=== PATIENT | male | born 1950 | race Caucasian/White ===

== ENCOUNTER → 2016-09-23 | Outpatient (CLI) | payer OTHER ==
[~2016-09-23] MED LIST: ASPI81TA85 PO; FISH1000 PO; GLUC1CAP9 PO; LISI20TA3 PO; MULTTAB PO; TYLE650T25 PO; [UNRECOGNIZED DRUG - CODE] PO; [UNRECOGNIZED DRUG - OTHER] PO; tamulosin PO
[2016-09-23 14:59] LABS: CREATININE FOR GFR 1.36 MG/DL (0.70-1.30); GLOMERULAR FILTRATION RATE 56.2 (>49)
== END ==
LOC: M LAB 14:17
PROVIDERS: ATTEND Podiatrist
DX: D49.2 Neoplasm of unspecified behavior of bone, soft tissue, and skin (principal)

== ENCOUNTER → 2016-11-27 | Outpatient (CLI) | payer MEDICARE, OTHER ==
--- NOTE | 2016-11-27 12:27 | REP ---
Chest two views HISTORY: Melanoma Comparison: 09/09/2015 The lungs are clear. The heart is normal in size. The pulmonary vasculature is normal in appearance. There is an old healed fracture of the right clavicle. Surgical clips are present in the right axilla. IMPRESSION: No acute disease.
--- NOTE | 2016-11-27 12:47 | REP ---
RIGHT SHOULDER, THREE VIEWS: HISTORY: Pain. There is no acute fracture or dislocation. There is narrowing of the acromioclavicular joint with associated osteophyte formation. Calcification is present lateral to the head of the humerus. This represents ligamentous or tendon calcification. Surgical clips are present in the right axilla. IMPRESSION: Degenerative change as described above.
== END ==
LOC: M CLY 11:38
PROVIDERS: ATTEND Family Medicine
DX: M19.011 Primary osteoarthritis, right shoulder (principal); Z85.820 Personal history of malignant melanoma of skin; Z08 Encounter for follow-up examination after completed treatment for malignant neoplasm

== ENCOUNTER → 2016-11-27 | Outpatient (REF) | payer MEDICARE, OTHER ==
[2016-11-27 20:03] LABS: MEAN CORPUSCULAR HEMOGLOBIN 33.3 pg (27.0-33.0); MEAN CORPUSCULAR HGB CONC 33.9 g/dl (32.0-36.5); RED CELL DISTRIBUTION WIDTH 12.5 % (11.5-14.5); WHITE BLOOD COUNT 7.7 K/mm3 (4.0-10.0)
[2016-11-27 20:11] LABS: ALBUMIN 4.3 GM/DL (3.2-5.2); ALBUMIN/GLOBULIN RATIO 1.48 (1.00-1.93); BILIRUBIN,TOTAL 0.5 MG/DL (0.2-1.0); CALCIUM LEVEL 8.9 MG/DL (8.8-10.2); CREATININE FOR GFR 1.6 MG/DL (0.70-1.30); GLOMERULAR FILTRATION RATE 46.4 (>49); POTASSIUM SERUM 3.8 MEQ/L (3.5-5.1); TOTAL PROTEIN 7.2 GM/DL (6.4-8.2)
== END ==
LOC: M SFHCCLAY 11:01
PROVIDERS: ATTEND Family Medicine
DX: Z00.00 Encounter for general adult medical examination without abnormal findings (principal); N52.9 Male erectile dysfunction, unspecified; I10 Essential (primary) hypertension; Z12.5 Encounter for screening for malignant neoplasm of prostate
CPT/HCPCS: 80053; 80061; 84443; 85027; G0103

== ENCOUNTER → 2016-12-11 | Outpatient (CLI) | payer MEDICARE, OTHER ==
--- NOTE | 2016-12-11 11:32 | REP ---
ABDOMINAL AORTIC SONOGRAPHY: HISTORY: Tobacco use. FINDINGS: Retroperitoneal scanning demonstrates a normal caliber aorta at the diaphragmatic hiatus measuring 2.2 cm in AP dimension x 2.1 cm transverse. No aortic aneurysm is seen. The mid aortic dimensions are 2.1 x 2.4 cm. The distal aorta measures 1.8 x 2.5 cm in AP x transverse dimension respectively. There are mild atherosclerotic irregularities in the wall of the aorta. The right and left common iliac arteries are normal in caliber as well, measuring 1.3 and 1.1 cm in AP dimension respectively. IMPRESSION: No evidence of aortic aneurysm. Signed by Mark Stallworth MD 12/11/2016 01:54 P
== END ==
LOC: M RAD 09:03
PROVIDERS: ATTEND Family Medicine
DX: Z87.891 Personal history of nicotine dependence (principal); Z09 Encounter for follow-up examination after completed treatment for conditions other than malignant neoplasm

== ENCOUNTER → 2017-01-05 | Outpatient (CLI) | payer MEDICARE ==
--- NOTE | 2017-01-06 07:36 | REP ---
Clinical: Lung screening. History smoking. Technique: Axial noncontrast low-dose images from the thoracic inlet to the upper abdomen using lung screening technique. Comparison: None. Findings: Mild chronic age-related interstitial changes and bibasilar/lingular chronic fibroatelectatic changes are noted. A 3 mm noncalcified nodule in the periphery of the right middle lobe (image 46) and left lower lobe (image 50) are identified. No further significant nodule or mass lesion appreciated. No pleural effusion or pneumothorax. Impression: Lung-RADS category IIS. Presumed chronic fibro atelectatic changes primarily involving the lingula and to a lesser extent the bilateral lower lobes along with 3 mm noncalcified nodule in the right middle lobe and left lower lobe. 6-month low-dose CT reevaluation may be warranted. Signed by Adair Orta MD 01/06/2017 07:28 A
== END ==
LOC: M RAD 12:54
PROVIDERS: ATTEND Family Medicine
DX: F17.210 Nicotine dependence, cigarettes, uncomplicated (principal)

== ENCOUNTER → 2017-01-06 | Outpatient (REF) | payer OTHER ==
[2017-01-06 18:22] LABS: CALCIUM LEVEL 8.7 MG/DL (8.8-10.2); CREATININE FOR GFR 1.34 MG/DL (0.70-1.30); POTASSIUM SERUM 3.7 MEQ/L (3.5-5.1)
== END ==
LOC: M SFHCCLAY 09:55
PROVIDERS: ATTEND Family Medicine
DX: I10 Essential (primary) hypertension (principal)

== ENCOUNTER → 2017-03-22 | Outpatient (REF) | payer MEDICARE, MEDICAID ==
[2017-03-22 11:43] LABS: MEAN CORPUSCULAR HEMOGLOBIN 34.5 pg (27.0-33.0); MEAN CORPUSCULAR HGB CONC 34.9 g/dl (32.0-36.5); MEAN CORPUSCULAR VOLUME 99.1 fl (80.0-96.0); WHITE BLOOD COUNT 7.7 K/mm3 (4.0-10.0)
[2017-03-22 12:02] LABS: CALCIUM LEVEL 9.3 MG/DL (8.8-10.2); CREATININE FOR GFR 1.29 MG/DL (0.70-1.30); GLOMERULAR FILTRATION RATE 59.5 (>49); POTASSIUM SERUM 3.4 MEQ/L (3.5-5.1)
== END ==
LOC: M SFHCCLAY 08:51
PROVIDERS: ATTEND Family Medicine
DX: I10 Essential (primary) hypertension (principal); K44.9 Diaphragmatic hernia without obstruction or gangrene

== ENCOUNTER → 2017-03-30 | Outpatient (REF) | payer MEDICAID, MEDICARE ==
[2017-03-30 19:39] LABS: ANION GAP 7 MEQ/L (8-16); BLOOD UREA NITROGEN 15 MG/DL (7-18); CALCIUM LEVEL 9.4 MG/DL (8.8-10.2); CARBON DIOXIDE LEVEL 27 MEQ/L (21-32); CHLORIDE LEVEL 107 MEQ/L (98-107); CREATININE FOR GFR 1.23 MG/DL (0.70-1.30); GLOMERULAR FILTRATION RATE > 60.0 (>49); GLUCOSE, FASTING 86 MG/DL (80-110); POTASSIUM SERUM 3.8 MEQ/L (3.5-5.1); SODIUM LEVEL 141 MEQ/L (136-145)
== END ==
LOC: M SFHCCLAY 11:04
PROVIDERS: ATTEND Family Medicine
DX: Z01.818 Encounter for other preprocedural examination (principal); G89.29 Other chronic pain; I10 Essential (primary) hypertension

== ENCOUNTER → 2017-05-04 | Outpatient (CLI) | payer MEDICARE ==
--- NOTE | 2017-05-04 11:10 | REP ---
CT of the chest without IV contrast: Comparison is the low-dose lung screening CT dated 01/05/2017. There is a curvilinear density in the lingular segment of the left upper lobe, unchanged, compatible with discoid atelectasis versus parenchymal scar. There is a curvilinear density in the right lower lobe, unchanged, compatible with discoid atelectasis versus parenchymal scar. There is a curvilinear density posteriorly inferiorly in the right upper lobe , unchanged, compatible with discoid atelectasis versus parenchymal scar. There is a 3 mm noncalcified lung nodule posteriorly in the lateral segment of the right middle lobe on image 45, unchanged. There is a 3 mm calcified granuloma posterior laterally in the left lower lobe on image 50, unchanged. There are no other nodules or masses. There are no acute infiltrates or effusions. There is no mediastinal adenopathy. There are a few normal-sized nodes. There is no axillary adenopathy. There are a few normal-size nodes. In the absence of IV contrast the study is insensitive for hilar adenopathy. Thoracic aorta is well. Cardiac size is normal. In the upper abdomen. There are surgical clips in the gallbladder fossa. There is no adrenal mass. The visualized portions of the unenhanced liver, pancreas and spleen are unremarkable. Impression: There is a 3 mm noncalcified nodule in the right middle lobe, unchanged. There is a 3 mm calcified granuloma in the left lower lobe, unchanged. There are curvilinear densities in the lingula, right lower lobe and right upper lobe, unchanged, compatible with discoid atelectasis versus parenchymal scars. Signed by Ej Hess MD 05/04/2017 11:02 A
== END ==
LOC: M RAD 10:22
PROVIDERS: ATTEND Internal Medicine Pulmonary Disease
DX: R91.8 Other nonspecific abnormal finding of lung field (principal)

== ENCOUNTER → 2017-09-01 | Outpatient (REF) | payer MEDICARE | LOC: M SFHCCLAY 12:01 | PROVIDERS: ATTEND Family Medicine | DX: R21 Rash and other nonspecific skin eruption (principal); M19.90 Unspecified osteoarthritis, unspecified site; Z11.59 Encounter for screening for other viral diseases ==

== ENCOUNTER → 2017-09-08 | Outpatient (REF) | payer MEDICARE | LOC: M SMT 17:29 | PROVIDERS: ATTEND Nurse Practitioner Women's Health | DX: N40.1 Benign prostatic hyperplasia with lower urinary tract symptoms (principal) ==

== ENCOUNTER → 2017-10-08 | Outpatient (CLI) | payer MEDICARE, BC | LOC: M SMT 09:23 | DX: N40.1 Benign prostatic hyperplasia with lower urinary tract symptoms (principal) | CPT/HCPCS: 76857 ==

== ENCOUNTER → 2017-10-26 | Outpatient (REF) | payer BC | LOC: M LABSMT 08:52 | DX: N39.0 Urinary tract infection, site not specified (principal) | CPT/HCPCS: 87086 ==

== ENCOUNTER → 2017-11-02 | Outpatient (CLI) | payer MEDICARE | LOC: M RAD 10:55 | DX: R91.1 Solitary pulmonary nodule (principal) | CPT/HCPCS: 71250 ==

== ENCOUNTER → 2017-11-11 | Outpatient (REF) | payer MEDICARE | LOC: M SMT 13:06 | DX: R30.0 Dysuria (principal) | CPT/HCPCS: 87086 ==

== ENCOUNTER → 2018-04-26 | Outpatient (REF) | payer MEDICARE | LOC: M SFHCCLAY 10:38 | DX: I10 Essential (primary) hypertension (principal); K44.9 Diaphragmatic hernia without obstruction or gangrene; G47.33 Obstructive sleep apnea (adult) (pediatric); Z53.8 Procedure and treatment not carried out for other reasons ==

== ENCOUNTER → 2018-08-09 | Outpatient (REF) | payer MEDICARE ==
[2018-08-09 12:20] LABS: HEMATOCRIT 40.7 % (42.0-52.0); HEMOGLOBIN 13.9 g/dl (13.5-17.5); MEAN CORPUSCULAR HEMOGLOBIN 32.6 pg (27.0-33.0); MEAN CORPUSCULAR HGB CONC 34.2 g/dl (32.0-36.5); MEAN CORPUSCULAR VOLUME 95.5 fl (80.0-96.0); PLATELET COUNT, AUTOMATED 196 10^3/uL (150-450); RED BLOOD COUNT 4.26 10^6/uL (4.30-6.10); RED CELL DISTRIBUTION WIDTH 12.5 % (11.5-14.5); WHITE BLOOD COUNT 7.9 10^3/uL (4.0-10.0)
[2018-08-09 12:23] LABS: ALBUMIN 3.6 GM/DL (3.2-5.2); ALBUMIN/GLOBULIN RATIO 1.24 (1.00-1.93); ALKALINE PHOSPHATASE 94 U/L (45-117); ALT/SGPT 56 U/L (12-78); ANION GAP 7 MEQ/L (8-16); AST/SGOT 28 U/L (7-37); BILIRUBIN,TOTAL 0.6 MG/DL (0.2-1.0); BLOOD UREA NITROGEN 12 MG/DL (7-18); CALCIUM LEVEL 8.6 MG/DL (8.8-10.2); CARBON DIOXIDE LEVEL 29 MEQ/L (21-32); CHLORIDE LEVEL 105 MEQ/L (98-107); CHOLESTEROL LEVEL 149 MG/DL (<200); CHOLESTEROL RISK RATIO 4.138 (<5); CREATININE FOR GFR 1.14 MG/DL (0.70-1.30); GLOMERULAR FILTRATION RATE > 60.0 (>49); GLUCOSE, FASTING 110 MG/DL (70-100); HDL CHOLESTEROL 36 MG/DL (>40); LDL CHOLESTEROL 71 MG/DL (<100); NON-HDL-C 113 MG/DL; POTASSIUM SERUM 3.7 MEQ/L (3.5-5.1); SODIUM LEVEL 141 MEQ/L (136-145); TOTAL PROTEIN 6.5 GM/DL (6.4-8.2); TRIGLYCERIDES LEVEL 212 MG/DL (<150)
== END ==
LOC: M SFHCCLAY 07:44
DX: K44.9 Diaphragmatic hernia without obstruction or gangrene (principal); I10 Essential (primary) hypertension; G47.33 Obstructive sleep apnea (adult) (pediatric)
CPT/HCPCS: 80053

== ENCOUNTER → 2018-11-15 | Outpatient (CLI) | payer MEDICARE ==
--- NOTE | 2018-11-15 15:30 | REP ---
Clinical: Follow up solitary pulmonary nodule. Technique: Axial noncontrast images from the thoracic inlet to the upper abdomen with coronal and sagittal re-formations. Comparison: 11/02/2017. Findings: Lung alvarez are well-aerated, symmetric and essentially clear. Minimal linear scarring at the lingula noted. Stable 3 mm noncalcified nodule along the periphery of the right middle lobe unchanged. No acute consolidation, significant nodule, or mass lesion. Small calcified granulomas identified. No pleural effusion. No pneumothorax. Tracheobronchial tree is patent. No obvious adenopathy. Mediastinum demonstrates relatively normal thoracic aorta, pulmonary vasculature, heart and pericardium. No cardiomegaly or pericardial effusion. Surrounding musculoskeletal structures without focal osseous abnormality. Limited upper abdomen demonstrates evidence for prior cholecystectomy, 3 mm nonobstructing left intrarenal calculus, and essentially normal bilateral adrenal glands. Impression: Minimal linear scarring at the lingula. Stable 3 mm noncalcified right middle lobe nodule. 3 mm nonobstructing left nephrolith. Electronically Signed by Adair Orta MD 11/15/2018 03:22 P
== END ==
LOC: M RAD 15:01
PROVIDERS: ATTEND Internal Medicine Pulmonary Disease
DX: R91.1 Solitary pulmonary nodule (principal); N20.0 Calculus of kidney

== ENCOUNTER → 2019-02-03 | Outpatient (REF) | payer MEDICARE ==
[2019-02-03 18:45] LABS: HEMOGLOBIN A1c 6.2 %
== END ==
LOC: M SFHCCLAY 11:36
PROVIDERS: ATTEND Family Medicine
DX: R73.02 Impaired glucose tolerance (oral) (principal)

== ENCOUNTER → 2019-08-09 | Outpatient (REF) | payer MEDICARE ==
[~2019-08-09] MED LIST changes: +LISI20TA20 PO; -LISI20TA3 PO
[2019-08-09 16:44] LABS: HEMATOCRIT 44.2 % (42.0-52.0); MEAN CORPUSCULAR HEMOGLOBIN 33.5 pg (27.0-33.0); MEAN CORPUSCULAR HGB CONC 33.9 g/dl (32.0-36.5); MEAN CORPUSCULAR VOLUME 98.7 fl (80.0-96.0); PLATELET COUNT, AUTOMATED 189 10^3/uL (150-450); RED BLOOD COUNT 4.48 10^6/uL (4.30-6.10)
[2019-08-09 16:59] LABS: ALBUMIN 3.9 GM/DL (3.2-5.2); BILIRUBIN,TOTAL 0.8 MG/DL (0.2-1.0); CALCIUM LEVEL 9.2 MG/DL (8.8-10.2); CHOLESTEROL RISK RATIO 2.944 (<5); CREATININE FOR GFR 1.3 MG/DL (0.70-1.30); FREE T4 1.01 NG/DL (0.76-1.46); GLOMERULAR FILTRATION RATE 58.6 (>49); POTASSIUM SERUM 3.7 MEQ/L (3.5-5.1); THYROID STIMULATING HORMONE 2.31 uIU/ML (0.358-3.740); TOTAL PROTEIN 7.3 GM/DL (6.4-8.2)
== END ==
LOC: M SFHCCLAY 10:30
PROVIDERS: ATTEND Family Medicine
DX: I10 Essential (primary) hypertension (principal); G47.33 Obstructive sleep apnea (adult) (pediatric); K44.9 Diaphragmatic hernia without obstruction or gangrene

== ENCOUNTER → 2019-11-24 | Outpatient (REF) | payer MEDICARE ==
[2019-11-24 16:19] LABS: HEMATOCRIT 45.6 % (42.0-52.0); HEMOGLOBIN 15.5 g/dl (13.5-17.5); PLATELET COUNT, AUTOMATED 191 10^3/uL (150-450)
[2019-11-24 16:35] LABS: ALBUMIN 4.2 GM/DL (3.2-5.2); BILIRUBIN,TOTAL 0.8 MG/DL (0.2-1.0); CALCIUM LEVEL 9.1 MG/DL (8.8-10.2); CREATININE FOR GFR 1.37 MG/DL (0.70-1.30); FREE T4 0.95 NG/DL (0.76-1.46); POTASSIUM SERUM 3.6 MEQ/L (3.5-5.1); THYROID STIMULATING HORMONE 3.18 uIU/ML (0.358-3.740); TOTAL PROTEIN 7.4 GM/DL (6.4-8.2)
[2019-11-24 16:48] LABS: ERYTHROCYTE SEDIMENTATION RATE 6 mm/hr (0-20)
== END ==
LOC: M SFHCCLAY 10:35
PROVIDERS: ATTEND Family Medicine
DX: M54.41 Lumbago with sciatica, right side (principal); R63.4 Abnormal weight loss; I10 Essential (primary) hypertension; Z12.5 Encounter for screening for malignant neoplasm of prostate; Z79.899 Other long term (current) drug therapy
CPT/HCPCS: 80053; 83036; 84165; 84439; 84443; 85027; 85652; G0103

== ENCOUNTER → 2019-11-30 | Outpatient (CLI) | payer MEDICARE ==
--- NOTE | 2019-11-30 13:33 | REP ---
Lumbar spine series: Five views. History: Lumbago with sciatica. Findings: Five views of the lumbar spine show mild wedging of the anterior edge of the T12 vertebral body. This is unchanged from a comparison study of August 06, 2012. There are degenerative disc changes throughout the lumbar spine which are somewhat more prominent than on that prior study. There is an area of discogenic sclerosis along the superior endplate of the L4 vertebral body. There are clips in right upper quadrant and right mid abdomen. Osteoarthritic facet hypertrophy is noted bilaterally. There are old post-traumatic changes in the transverse processes on the left at L3 and L2. These are unchanged. Sacrum and SI joints are intact. Psoas margins are symmetric. Impression: Degenerative spondylosis changes as above. Old post-traumatic deformity of the left lateral transverse processes at L2 and L3 unchanged. Old wedge compression deformity at T12 unchanged. Electronically Signed by Mark Stallworth MD 11/30/2019 01:35 P
--- NOTE | 2019-11-30 13:36 | REP ---
Duplex carotid sonography: History: Nicotine dependency history. No comparison study. Findings: Antegrade flow was observed in both vertebral arteries. Right carotid: The right common carotid artery is unremarkable on two-dimensional scanning. There is mild calcific plaquing in the right carotid bulb and proximal ICA. Color flow and spectral Doppler interrogation is unremarkable on the right. Velocity chart right carotid: PSV EDV Right CCA 90.0 cm/s Right ICA 46.0 20.0 Right ECA 88.0 Right ICA/CCA ratio normal 0.5. Impression: Less than 50% category narrowing in the right ICA by Doppler velocity criteria. Left carotid: The left common carotid artery is unremarkable. There is minimal calcific plaquing on the left. Color flow and spectral Doppler interrogation are unremarkable on the left. Velocity chart left carotid: PSV EDV Left CCA 81.0 cm/s Left ICA 62.0 33.0 Left ECA 65.0 Left ICA/CCA ratio normal 0.8. Impression: Less than 50% category narrowing in the left ICA by Doppler velocity criteria. Electronically Signed by Mark Stallworth MD 11/30/2019 02:31 P
== END ==
LOC: M RAD 11:33
PROVIDERS: ATTEND Family Medicine
DX: I25.10 Atherosclerotic heart disease of native coronary artery without angina pectoris (principal); M54.41 Lumbago with sciatica, right side; F17.210 Nicotine dependence, cigarettes, uncomplicated; I10 Essential (primary) hypertension; H34.01 Transient retinal artery occlusion, right eye

== ENCOUNTER → 2020-01-01 | Outpatient (CLI) | payer MEDICARE ==
--- NOTE | 2020-01-01 10:30 | REP ---
CT CHEST WITHOUT CONTRAST: CT chest performed without IV contrast. Sagittal and coronal reconstruction images are performed. Comparison is made with a prior study of 11/15/2018 and 11/02/2017. Small calcified granulomas are seen bilaterally, right greater than left. There is linear fibrotic scarring in the lingula. There is also scattered linear scarring in the right lung. The previously noted 3 mm nodular density in the right middle lobe appears to represent linear scarring on the coronal reconstruction images. Posterior left upper lobe scarring is stable. No new nodule is seen. There is no axillary or mediastinal adenopathy. There is mild atherosclerotic calcification of the thoracic aorta without aneurysm. The heart is normal in size. There is no pleural or pericardial effusion. Patient has had a prior cholecystectomy. There are degenerative changes of the spine. Stable compression deformities are noted of the lower thoracic spine. IMPRESSION: Calcified granulomas are seen bilaterally as well as scattered linear fibrotic scarring. No suspicious nodular opacity. Electronically Signed by Ej Mora MD 01/01/2020 12:55 P
== END ==
LOC: M RAD 08:44
PROVIDERS: ATTEND Internal Medicine Pulmonary Disease
DX: R91.1 Solitary pulmonary nodule (principal)

== ENCOUNTER → 2020-01-02 | Outpatient (REF) | payer MEDICARE ==
[2020-01-02 11:31] LABS: CALCIUM LEVEL 8.6 MG/DL (8.8-10.2); CREATININE FOR GFR 1.33 MG/DL (0.70-1.30); GLOMERULAR FILTRATION RATE 56.9 (>49); POTASSIUM SERUM 3.7 MEQ/L (3.5-5.1)
== END ==
LOC: M SFHCCLAY 07:38
PROVIDERS: ATTEND Family Medicine
DX: I10 Essential (primary) hypertension (principal)

== ENCOUNTER → 2020-05-06 | Outpatient (CLI) | payer MEDICARE ==
[~2020-05-06] MED LIST changes: -ASPI81TA85 PO; +ASPI81TA86 PO
== END ==
LOC: M RAD 13:30
PROVIDERS: ATTEND Orthopaedic Surgery
DX: M47.892 Other spondylosis, cervical region (principal); M25.78 Osteophyte, vertebrae; M50.23 Other cervical disc displacement, cervicothoracic region

== ENCOUNTER → 2020-06-19 | Outpatient (CLI) | payer MEDICARE | LOC: M LABSMTC 09:50 | PROVIDERS: ATTEND Orthopaedic Surgery | DX: Z01.812 Encounter for preprocedural laboratory examination (principal); Z20.828 Contact with and (suspected) exposure to other viral communicable diseases ==

== ENCOUNTER → 2020-06-20 | Outpatient (CLI) | payer MEDICARE | LOC: M LABSMTC 10:39 | PROVIDERS: ATTEND Orthopaedic Surgery | DX: Z01.812 Encounter for preprocedural laboratory examination (principal); Z20.828 Contact with and (suspected) exposure to other viral communicable diseases ==

== ENCOUNTER → 2021-01-06 | Outpatient (CLI) | payer MEDICARE ==
--- NOTE | 2021-01-06 09:43 | REP ---
INDICATION: SOLITARY PULMONARY NODULE COMPARISON: Multiple prior examinations dating between 01/01/2020 and 01/05/2017 TECHNIQUE: Axial noncontrast images from the thoracic inlet to the upper abdomen with coronal and sagittal reformations. This CT examination was performed using the following dose reduction techniques: Automated exposure control, adjustment of mA and/or kv according to the patient's size, and use of iterative reconstruction technique. FINDINGS: Lung alvarez demonstrate stable small calcified and noncalcified nodules unchanged from prior examination along with minimally progressive scattered linear fibroatelectatic changes primarily in the right lower lobe and lingula. No acute consolidation, significant nodule or mass lesion. No pleural effusion. No pneumothorax. Tracheobronchial tree is patent. Mediastinum demonstrates mild stable atherosclerotic changes to the thoracic aorta and coronary arteries without aortic aneurysm or cardiomegaly. No pericardial effusion. No significant hilar or mediastinal adenopathy is appreciated. Few mildly prominent lymph nodes in the left axilla are nonspecific but appear increased as compared with 01/01/2020. Skeletal structures demonstrate scattered nonspecific heterogeneous changes along with small bone island in the right 8th rib. IMPRESSION: 1. Stable small noncalcified and calcified nodules. No new acute suspicious consolidation, nodule or mass. 2. Mildly progressive chronic changes suggested primarily at the right base and lingula. 3. Left axillary lymph nodes are nonspecific but appear increased compared with 2019 <Electronically signed by Adair Orta > 01/06/21 0953
== END ==
LOC: M RAD 09:07
PROVIDERS: ATTEND Internal Medicine Pulmonary Disease
DX: R91.1 Solitary pulmonary nodule (principal)

== ENCOUNTER → 2021-01-31 | Outpatient (REF) | payer MEDICARE ==
[~2021-01-31] MED LIST changes: +HYDR-3490 PO; +POTA10CA32 PO
[2021-01-31 11:43] LABS: HEMATOCRIT 44.4 % (42.0-52.0); HEMOGLOBIN 14.8 g/dl (13.5-17.5); MEAN CORPUSCULAR HEMOGLOBIN 33.3 pg (27.0-33.0); MEAN CORPUSCULAR HGB CONC 33.3 g/dl (32.0-36.5); MEAN CORPUSCULAR VOLUME 99.8 fl (80.0-96.0); PLATELET COUNT, AUTOMATED 189 10^3/uL (150-450); RED BLOOD COUNT 4.45 10^6/uL (4.30-6.10); WHITE BLOOD COUNT 7.8 10^3/uL (4.0-10.0)
[2021-01-31 12:55] LABS: ALBUMIN 3.8 GM/DL (3.2-5.2); ALT/SGPT 25 U/L (12-78); BILIRUBIN,TOTAL 0.7 MG/DL (0.2-1.0); BLOOD UREA NITROGEN 16 MG/DL (7-18); CARBON DIOXIDE LEVEL 29 MEQ/L (21-32); CHLORIDE LEVEL 107 MEQ/L (98-107); CHOLESTEROL LEVEL 160 MG/DL (<200); CHOLESTEROL RISK RATIO 2.909 (<5); CREATININE FOR GFR 1.12 MG/DL (0.70-1.30); GLOMERULAR FILTRATION RATE > 60.0 (>49); GLUCOSE, FASTING 89 MG/DL (70-100); HDL CHOLESTEROL 55 MG/DL (>40); LDL CHOLESTEROL 89 MG/DL (<100); NON-HDL-C 105 MG/DL; POTASSIUM SERUM 3.9 MEQ/L (3.5-5.1); SODIUM LEVEL 142 MEQ/L (136-145); TOTAL PROTEIN 6.6 GM/DL (6.4-8.2); TRIGLYCERIDES LEVEL 80 MG/DL (<150)
== END ==
LOC: M SFHCCLAY 09:40
PROVIDERS: ATTEND Family Medicine
DX: K44.9 Diaphragmatic hernia without obstruction or gangrene (principal); I10 Essential (primary) hypertension

== ENCOUNTER → 2021-02-01 | Outpatient (CLI) | payer MEDICARE | LOC: M LABSMTC 07:56 | PROVIDERS: ATTEND Anesthesiology | DX: Z11.52 Encounter for screening for COVID-19 (principal) ==

== ENCOUNTER 2021-02-06 08:27 | Day surgery (SDC) | payer MEDICARE ==
[~2021-02-06] VITALS: Ht 167.6 cm; Wt 104.8 kg
[~2021-02-06 08:27] MED LIST changes: +NS 1,000 ML IV ONE
[2021-02-06] MEDS ORDERED: propofoL 200 MG/20 ML VIAL As Ordered ONE (09:38)
[2021-02-06] MEDS ORDERED: LIDOCAINE 2% 100MG/5ML SDV (FOR ANES.) As Ordered ONE (09:38)
--- NOTE | 2021-02-06 10:10 | ROOR ---
Patient Name: Efra Ocampo Procedure Date: 02/06/2021 9:45 AM Date of : 1950 Age: 70 Room: [facility] Gender: Male Note Status: Finalized Procedure: Colonoscopy Indications: High risk colon cancer surveillance: Personal history of colonic polyps Providers: Hieu Kaplan Jr, MD Referring MD: Kalyan Gallardo MD Requesting Provider: Medicines: Propofol per Anesthesia Complications: No immediate complications. Procedure: Pre-Anesthesia Assessment: - Prior to the procedure, a History and Physical was performed, and patient medications and allergies were reviewed. The patient is competent. The risks and benefits of the procedure and the sedation options and risks were discussed with the patient. All questions were answered and informed consent was obtained. Patient identification and proposed procedure were verified by the physician and the nurse in the pre-procedure area and in the procedure room. Mental Status Examination: alert and oriented. Airway Examination: normal oropharyngeal airway and neck mobility. Respiratory Examination: clear to auscultation. CV Examination: normal. ASA Grade Assessment: II - A patient with mild systemic disease. After reviewing the risks and benefits, the patient was deemed in satisfactory condition to undergo the procedure. The anesthesia plan was to use moderate sedation / analgesia (conscious sedation). Immediately prior to administration of medications, the patient was re-assessed for adequacy to receive sedatives. The heart rate, respiratory rate, oxygen saturations, blood pressure, adequacy of pulmonary ventilation, and response to care were monitored throughout the procedure. The physical status of the patient was re-assessed after the procedure. The Colonoscope was introduced through the anus and advanced to the cecum, identified by appendiceal orifice and ileocecal valve. The colonoscopy was performed without difficulty. The patient tolerated the procedure well. The quality of the bowel preparation was adequate. Findings: A small polyp was found in the ascending colon. The polyp was removed with a hot snare. Resection and retrieval were complete. The rectum, recto-sigmoid colon, descending colon, transverse colon, cecum, appendiceal orifice and ileocecal valve appeared normal. Multiple small and large-mouthed diverticula were found in the sigmoid colon. Impression: - One small polyp in the ascending colon, removed with a hot snare. Resected and retrieved. - The rectum, recto-sigmoid colon, descending colon, transverse colon, cecum, appendiceal orifice and ileocecal valve are normal. - Diverticulosis in the sigmoid colon. Recommendation: - Discharge patient to home (ambulatory). - Repeat colonoscopy in 5 years for surveillance. - Telephone my office for pathology results in 1 week. Procedure Code(s): --- Professional --- 05041, Colonoscopy, flexible; with removal of tumor(s), polyp(s), or other lesion(s) by snare technique Diagnosis Code(s): --- Professional --- Z86.010, Personal history of colonic polyps K63.5, Polyp of colon K57.30, Diverticulosis of large intestine without perforation or abscess without bleeding CPT copyright 2019 [employer]. All rights reserved. The codes documented in this report are preliminary and upon animal care giver review may be revised to meet current compliance requirements. Hieu Kaplan MD Hieu Kaplan Jr, MD 02/06/2021 10:10:05 AM Electronically signed by Hieu Kaplan Jr, MD Number of Addenda: 0 Note Initiated On: 02/06/2021 9:45 AM Estimated Blood Loss: Estimated blood loss: none.
[2021-02-06 10:31] VITALS: BP 118/88
== END 2021-02-06 10:35 | disposition home or self-care (01) ==
LOC: M OPP 08:27
PROVIDERS: ATTEND Surgery
DX: Z12.11 Encounter for screening for malignant neoplasm of colon (principal); Z86.010 Personal history of colon polyps; D12.6 Benign neoplasm of colon, unspecified; K57.30 Diverticulosis of large intestine without perforation or abscess without bleeding; Z79.82 Long term (current) use of aspirin; Z79.899 Other long term (current) drug therapy; Z87.891 Personal history of nicotine dependence

== ENCOUNTER → 2021-06-20 | Outpatient (CLI) | payer MEDICARE ==
[~2021-06-20] MED LIST changes: -NS 1,000 ML IV ONE
--- NOTE | 2021-06-20 10:57 | REP ---
INDICATION: RT KNEE PAIN. COMPARISON: None. TECHNIQUE: Standing bilateral AP view of the knees with lateral and sunrise view of the right knee FINDINGS: There is been total left knee arthroplasty. The appearance of the arthroplasty is unremarkable. Three views of the right knee shows advanced medial compartmental narrowing with mild tricompartmental marginal osteophytosis and affecting the medial compartment to the greatest degree. There is medial compartmental subchondral sclerosis. 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 The margins are somewhat irregular, however. 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 If the patient has been involved in trauma then I suppose the finding could represent acute change upon chronic change. This needs to be correlated clinically. If necessary obtain an MRI. Other findings as described above. <Electronically signed by Camilo Humphrey > 06/20/21 1056
== END ==
LOC: M SOG 08:20
PROVIDERS: ATTEND Orthopaedic Surgery Adult Reconstructive Orthopaedic Surgery
DX: M25.561 Pain in right knee (principal)

== ENCOUNTER → 2021-07-28 | Outpatient (CLI) | payer MEDICARE, BC ==
[~2021-07-28] MED LIST changes: +CIDA500T2 PO; +D32000TA PO; +GNP625TA PO; +HEAL1TAB2 PO; +KP F1200 PO; +MULT-6 PO
--- NOTE | 2021-07-28 09:46 | REP ---
INDICATION: RT KNEE OSTEOARTHIRITIS. COMPARISON: X-ray 06/20/2021 TECHNIQUE: Ray protocol. FINDINGS: Right knee. Mild narrowing of the medial compartment on this nonweightbearing CT marginal osteophytes medial greater than lateral joint line and small spurs tibial spines. There is some sclerosis of the medial tibial plateau with subchondral cyst peripherally. Bone island in the medial femoral condyle. A bipartite patella is noted. Small suprapatellar effusion is noted. There is narrowing of the patellofemoral joint laterally and a few mm of lateral subluxation. Right hip shows some osteoarthritic change with rim osteophyte acetabular roof but without AVN or fracture. No abnormal soft tissue calcification about the joint. No effusion. Intertrochanteric and subtrochanteric femur grossly unremarkable. The visualized pubic rami are unremarkable there is some cystic changes in the acetabulum both articular and non articular. Right ankle shows talar dome tilt laterally with asymmetric widening of the lateral aspect of the mortise joint and narrowing medially some subchondral sclerosis and subchondral cyst at the medial talar dome and the also small cysts at the inferior aspect of the medial malleolus. There is an old avulsion off the distal tip of the medial malleolus. Minor degenerative changes the inferior aspect of the fibula. Subtalar joints show some degenerative changes at the posterior margin of the posterior subtalar joint with plantar and tiny Achilles insertion spurs on the posterior calcaneus. Talonavicular and calcaneocuboid joint joints are normal. AP and lateral rubber roller grinder operator films from below the iliac crests to the feet for surgical planning are provided. IMPRESSION: 1. Tricompartment arthritis of the knee as described. There also degenerative changes of the ankle and hip. These images and rubber roller grinder operator of the lower extremities provided for surgical planning. <Electronically signed by Zacarias James > 07/28/21 [id number]
== END ==
LOC: M RAD 08:40
PROVIDERS: ATTEND Orthopaedic Surgery Adult Reconstructive Orthopaedic Surgery
DX: M17.11 Unilateral primary osteoarthritis, right knee (principal)

== ENCOUNTER 2021-07-31 11:45 | Outpatient (RCR) | payer MEDICARE, BC ==
[~2021-07-31 11:45] MED LIST changes: -ASPI-551 PO; -COLA100C5 PO; -LISI20TA20 PO; +LISI20TA37 PO; -NAPR-849 PO; -OXYC-517 PO
[2021-08-13] MEDS ORDERED: OXYC-517 PO (08:48)
[2021-08-13] MEDS ORDERED: COLA100C5 PO (08:50)
[2021-08-13] MEDS ORDERED: NAPR-849 PO (08:50)
[2021-08-13] MEDS ORDERED: ASPI-551 PO (15:35)
== END 2021-08-19 ==
LOC: M PT 11:45
PROVIDERS: ATTEND Orthopaedic Surgery Adult Reconstructive Orthopaedic Surgery
DX: M17.11 Unilateral primary osteoarthritis, right knee (principal)

== ENCOUNTER → 2021-07-31 | Outpatient (REF) | payer MEDICARE, BC ==
[~2021-07-31] MED LIST changes: +ASPI-551 PO; +COLA100C5 PO; +NAPR-849 PO; +OXYC-517 PO
[2021-07-31 16:46] LABS: BASO # 0.1 10^3/uL (0.0-0.2); BASO % 0.6 % (0.0-1.0); EOS # 0.2 10^3/uL (0.0-0.5); EOS % 1.9 % (0.0-3.0); HEMATOCRIT 43.9 % (42.0-52.0); HEMOGLOBIN 15.1 g/dl (13.5-17.5); LYMPH # 2.5 10^3/uL (1.5-5.0); LYMPH % 30.6 % (24.0-44.0); MEAN CORPUSCULAR HEMOGLOBIN 33.2 pg (27.0-33.0); MEAN CORPUSCULAR HGB CONC 34.4 g/dl (32.0-36.5); MEAN CORPUSCULAR VOLUME 96.5 fl (80.0-96.0); MONO # 1.4 10^3/uL (0.0-0.8); NEUTROPHILS % 49.2 % (36.0-66.0); PLATELET COUNT, AUTOMATED 198 10^3/uL (150-450); RED BLOOD COUNT 4.55 10^6/uL (4.30-6.10); WHITE BLOOD COUNT 8.1 10^3/uL (4.0-10.0)
[2021-07-31 17:08] LABS: BILIRUBIN,TOTAL 0.6 MG/DL (0.2-1.0); CALCIUM LEVEL 9.6 MG/DL (8.8-10.2); CREATININE FOR GFR 1.34 MG/DL (0.70-1.30); GLOMERULAR FILTRATION RATE 56.3 (>49); POTASSIUM SERUM 3.8 MEQ/L (3.5-5.1); TOTAL PROTEIN 6.7 GM/DL (6.4-8.2)
== END ==
LOC: M SFHCCLAY 09:30
PROVIDERS: ATTEND Family Medicine
DX: I10 Essential (primary) hypertension (principal)
CPT/HCPCS: 80053; 85025; 93005; G0463

== ENCOUNTER → 2021-08-08 | Outpatient (CLI) | payer MEDICARE, BC ==
[~2021-08-08] MED LIST changes: +ASPI-551 PO; +COLA100C5 PO; +LISI20TA20 PO; -LISI20TA37 PO; +NAPR-849 PO; +OXYC-517 PO
== END ==
LOC: M LABSMTC 10:46
PROVIDERS: ATTEND Anesthesiology
DX: Z01.812 Encounter for preprocedural laboratory examination (principal); Z20.822 Contact with and (suspected) exposure to COVID-19

== ENCOUNTER 2021-08-12 08:35 | Observation (INO) | payer MEDICARE, BC ==
[~2021-08-12] VITALS: Ht 170.2 cm; Wt 102.9 kg
[~2021-08-12 08:35] MED LIST changes: +ACETAMINOPHEN 500 MG TAB PO ONE; -ASPI-551 PO; -COLA100C5 PO; +LIDOCAINE 1% MDV 20ML VIAL SQ PRN; +LIDOCAINE 2% 100MG/5ML SDV (FOR ANES.) As Ordered ONE; -LISI20TA20 PO; +LISI20TA37 PO; +LR 1,000 ML IV ONE; +MIDAZOLAM INJ 2MG/2ML VIAL (J2250 PER 1MG) As Ordered ONE; -NAPR-849 PO; +NAPROXEN 250 MG TAB PO ONE; +NS 1,000 ML IV ONE; -OXYC-517 PO; +PREGABALIN 25 MG CAP (LYRICA) PO ONE; +ROPIVA 125MG/EPINEPH 0.25MG/CLONID 40MCG/KETOR 15MG IN NS 50ML SYRINGE PA ONE; +TRANEXAMIC ACID INJection 1,000 MG in NS 50 ML IV ONE; +ceFAZolin SOD 2 GM in IV 1 EA IV ONE; +dexameTHASONE 4 MG/ML 1ML VIAL (J1100 PER 1MG) IV ONE; +fentaNYL 100 MCG/2 ML INJECTION As Ordered ONE; +propofoL 200 MG/20 ML VIAL As Ordered ONE; +propofoL 500 MG/50 ML VIAL As Ordered ONE
[2021-08-12] MEDS ORDERED: TRANEXAMIC ACID 100 MG/ML 10ML VIAL As Ordered ONE (10:22)
[2021-08-12] MEDS ORDERED: propofoL 500 MG/50 ML VIAL As Ordered ONE (11:51)
[2021-08-12] MEDS ORDERED: ePHEDrine SULFATE 25 MG/5 ML(5MG/ML) SYRINGE As Ordered ONE (12:34)
[2021-08-12] MEDS ORDERED: LR 1,000 ML IV SCH ×2 (13:35→13:40)
[2021-08-12] MEDS ORDERED: PERCOCET 5MG/325MG TAB PO PRN (13:35)
[2021-08-12] MEDS ORDERED: ONDANSETRON 4MG/2ML VIAL IV PRN ×2 (13:35→13:40)
[2021-08-12] MEDS ORDERED: fentaNYL 100 MCG/2 ML INJECTION IV PRN (13:35)
[2021-08-12] MEDS ORDERED: METOCLOPRAMIDE INJ 10MG/2ML VIAL (J2765 PER 1) IV PRN (13:35)
[2021-08-12] MEDS ORDERED: oxyCODONE 5MG TAB PO PRN ×2 (13:40)
[2021-08-12] MEDS ORDERED: traMADol 50 MG TAB PO PRN (13:40)
[2021-08-12] MEDS ORDERED: SENNA 8.6 MG TAB (SENOKOT) PO PRN (13:40)
[2021-08-12 14:26] VITALS: BP 110/66
[2021-08-12] MEDS: ACETAMINOPHEN TAB 650MG DOSE (2X325MG) PO SCH ×2 (14:35→18:28)
[2021-08-12 15:05] VITALS: BP 116/72
[2021-08-12 16:19] VITALS: BP 117/73
[2021-08-12 17:08] VITALS: BP 143/86
[2021-08-12] MEDS: ceFAZolin SOD 2 GM in IV 1 EA IV SCH (18:27)
[2021-08-12 18:53] VITALS: BP 109/69
[2021-08-12] MEDS: POTASSIUM CHLORIDE 10MEQ SR TABLET PO SCH (20:28)
[2021-08-12] MEDS: ASPIRIN 81MG ENTERIC TABLET PO SCH (20:28)
[2021-08-12] MEDS: DOCUSATE SODIUM 100MG CAPSULE PO SCH (20:28)
[2021-08-12] MEDS: NAPROXEN 250 MG TAB PO SCH (20:28)
[2021-08-12 21:00] VITALS: BP 110/58; O2SAT 94
[2021-08-13 02:00] VITALS: BP 114/74
[2021-08-13] MEDS: ceFAZolin SOD 2 GM in IV 1 EA IV SCH (02:25)
[2021-08-13] MEDS: ACETAMINOPHEN TAB 650MG DOSE (2X325MG) PO SCH ×3 (05:30→13:00)
[2021-08-13 05:59] VITALS: BP 122/72
[2021-08-13 06:16] LABS: HEMATOCRIT 36.1 % (42.0-52.0); HEMOGLOBIN 12.5 g/dl (13.5-17.5); MEAN CORPUSCULAR HEMOGLOBIN 33.1 pg (27.0-33.0); MEAN CORPUSCULAR HGB CONC 34.6 g/dl (32.0-36.5); MEAN CORPUSCULAR VOLUME 95.5 fl (80.0-96.0); PLATELET COUNT, AUTOMATED 153 10^3/uL (150-450); RED BLOOD COUNT 3.78 10^6/uL (4.30-6.10); WHITE BLOOD COUNT 12.9 10^3/uL (4.0-10.0)
[2021-08-13 06:45] LABS: BLOOD UREA NITROGEN 20 MG/DL (7-18); CALCIUM LEVEL 8.3 MG/DL (8.8-10.2); CARBON DIOXIDE LEVEL 24 MEQ/L (21-32); CHLORIDE LEVEL 112 MEQ/L (98-107); CREATININE FOR GFR 1.16 MG/DL (0.70-1.30); GLOMERULAR FILTRATION RATE > 60.0 (>49); GLUCOSE, FASTING 118 MG/DL (70-100); MAGNESIUM LEVEL 2.2 MG/DL (1.8-2.4); POTASSIUM SERUM 4.2 MEQ/L (3.5-5.1); SODIUM LEVEL 143 MEQ/L (136-145)
[2021-08-13] MEDS ORDERED: OXYC-517 PO (08:48)
[2021-08-13] MEDS: NAPROXEN 250 MG TAB PO SCH (08:49)
[2021-08-13] MEDS: ASPIRIN 81MG ENTERIC TABLET PO SCH (08:49)
[2021-08-13] MEDS: DOCUSATE SODIUM 100MG CAPSULE PO SCH (08:49)
[2021-08-13] MEDS: POTASSIUM CHLORIDE 10MEQ SR TABLET PO SCH (08:49)
[2021-08-13] MEDS ORDERED: COLA100C5 PO (08:50)
[2021-08-13] MEDS ORDERED: NAPR-849 PO (08:50)
[2021-08-13] MEDS ORDERED: ASCORBIC ACID 500 MG TAB PO SCH (09:00)
[2021-08-13] MEDS ORDERED: FERROUS SULFATE 325MG TAB PO SCH (09:00)
[2021-08-13 10:00] VITALS: BP 117/73
[2021-08-13 14:00] VITALS: BP 140/77
[2021-08-13] MEDS ORDERED: ASPI-551 PO (15:35)
== END 2021-08-13 16:45 | disposition home health service (06) ==
LOC: M SDC 08:35 → M MS5PR 08:36
PROVIDERS: ADMIT Family Medicine; ATTEND Orthopaedic Surgery Adult Reconstructive Orthopaedic Surgery
DX: M17.11 Unilateral primary osteoarthritis, right knee (principal); I10 Essential (primary) hypertension; G47.33 Obstructive sleep apnea (adult) (pediatric); Z87.891 Personal history of nicotine dependence; Z79.82 Long term (current) use of aspirin; Z86.73 Personal history of transient ischemic attack (TIA), and cerebral infarction without residual deficits; Z79.899 Other long term (current) drug therapy
CPT/HCPCS: 27447; 36415; 73560; 80048; 83735; 85027; 88304; 88311; 96365; 96366; 97161; 97530; C1776; G0378; J0690; J1100; J2250; J3010

== ENCOUNTER → 2021-08-15 | Outpatient (REF) | payer MEDICARE, BC ==
[~2021-08-15] MED LIST changes: -ACETAMINOPHEN 500 MG TAB PO ONE; +ASPI-551 PO; +COLA100C5 PO; -LIDOCAINE 1% MDV 20ML VIAL SQ PRN; -LIDOCAINE 2% 100MG/5ML SDV (FOR ANES.) As Ordered ONE; -LR 1,000 ML IV ONE; -MIDAZOLAM INJ 2MG/2ML VIAL (J2250 PER 1MG) As Ordered ONE; +NAPR-849 PO; -NAPROXEN 250 MG TAB PO ONE; -NS 1,000 ML IV ONE; +OXYC-517 PO; -PREGABALIN 25 MG CAP (LYRICA) PO ONE; -ROPIVA 125MG/EPINEPH 0.25MG/CLONID 40MCG/KETOR 15MG IN NS 50ML SYRINGE PA ONE; -TRANEXAMIC ACID INJection 1,000 MG in NS 50 ML IV ONE; -ceFAZolin SOD 2 GM in IV 1 EA IV ONE; -dexameTHASONE 4 MG/ML 1ML VIAL (J1100 PER 1MG) IV ONE; -fentaNYL 100 MCG/2 ML INJECTION As Ordered ONE; -propofoL 200 MG/20 ML VIAL As Ordered ONE; -propofoL 500 MG/50 ML VIAL As Ordered ONE
[2021-08-15 11:28] LABS: BASO # 0.1 10^3/uL (0.0-0.2); BASO % 0.5 % (0.0-1.0); EOS # 0.1 10^3/uL (0.0-0.5); EOS % 1.3 % (0.0-3.0); HEMATOCRIT 39.1 % (42.0-52.0); HEMOGLOBIN 13.3 g/dl (13.5-17.5); LYMPH # 2.6 10^3/uL (1.5-5.0); LYMPH % 23.6 % (24.0-44.0); MEAN CORPUSCULAR HEMOGLOBIN 32.6 pg (27.0-33.0); MEAN CORPUSCULAR VOLUME 95.8 fl (80.0-96.0); MONO % 18.2 % (2.0-8.0); NEUTROPHILS % 55.8 % (36.0-66.0); PLATELET COUNT, AUTOMATED 188 10^3/uL (150-450); RED BLOOD COUNT 4.08 10^6/uL (4.30-6.10); WHITE BLOOD COUNT 10.8 10^3/uL (4.0-10.0)
[2021-08-15 12:16] LABS: CALCIUM LEVEL 8.8 MG/DL (8.8-10.2); CREATININE FOR GFR 1.35 MG/DL (0.70-1.30); GLOMERULAR FILTRATION RATE 55.8 (>49); POTASSIUM SERUM 3.7 MEQ/L (3.5-5.1)
== END ==
LOC: M SHH 10:58
PROVIDERS: ATTEND Orthopaedic Surgery Adult Reconstructive Orthopaedic Surgery
DX: M17.11 Unilateral primary osteoarthritis, right knee (principal)

== ENCOUNTER → 2021-08-27 | Outpatient (CLI) | payer MEDICARE, BC ==
[~2021-08-27] MED LIST changes: +LISI20TA20 PO; -LISI20TA37 PO
--- NOTE | 2021-08-28 08:47 | REP ---
INDICATION: RT TKA FOLLOW UP. COMPARISON: 08/12/2021 TECHNIQUE: AP, lateral, sunrise views of the right knee. FINDINGS: Patient is again noted to be status post right knee replacement with normal appearance and positioning to the tibial, femoral, and patellar components. No evidence for loosening. Overlying postsurgical changes have significantly improved. No subcutaneous emphysema. No abnormal foreign body. IMPRESSION: Decreased postsurgical changes. <Electronically signed by Adair Orta > 08/28/21 0883
== END ==
LOC: M SOG 08:53
PROVIDERS: ATTEND Orthopaedic Surgery Adult Reconstructive Orthopaedic Surgery
DX: Z96.651 Presence of right artificial knee joint (principal)

== ENCOUNTER → 2021-12-24 | Outpatient (REF) | payer MEDICARE ==
[~2021-12-24] MED LIST changes: -LISI20TA20 PO; +LISI20TA37 PO
[2021-12-24 12:00] LABS: ALBUMIN 3.7 GM/DL (3.2-5.2); CREATININE FOR GFR 1.28 MG/DL (0.70-1.30); GLOMERULAR FILTRATION RATE 59.1 (>42); PHOSPHORUS LEVEL 3.1 MG/DL (2.5-4.9); POTASSIUM SERUM 3.6 MEQ/L (3.5-5.1)
== END ==
LOC: M SFHCCLAY 07:50
PROVIDERS: ATTEND Family Medicine
DX: I10 Essential (primary) hypertension (principal)

== ENCOUNTER → 2022-01-27 | Outpatient (CLI) | payer MEDICARE | LOC: M RAD 10:39 | PROVIDERS: ATTEND Internal Medicine Pulmonary Disease | DX: Z87.891 Personal history of nicotine dependence (principal) ==

== ENCOUNTER → 2022-04-21 | Outpatient (CLI) | payer MEDICARE | LOC: M CLY 09:05 | PROVIDERS: ATTEND Family Medicine | DX: R07.81 Pleurodynia (principal) ==

== ENCOUNTER → 2022-07-29 | Outpatient (CLI) | payer MEDICARE | LOC: M SOG 08:26 | PROVIDERS: ATTEND Orthopaedic Surgery Adult Reconstructive Orthopaedic Surgery | DX: Z96.653 Presence of artificial knee joint, bilateral (principal) ==

== ENCOUNTER → 2022-10-22 | Outpatient (REF) | payer MEDICARE ==
[~2022-10-22] MED LIST changes: -POTA10CA32 PO; +POTA10CA33 PO
[2022-10-22 17:33] LABS: HEMATOCRIT 44.5 % (42.0-52.0); HEMOGLOBIN 15.1 g/dl (13.5-17.5); MEAN CORPUSCULAR HEMOGLOBIN 32.9 pg (27.0-33.0); MEAN CORPUSCULAR HGB CONC 33.9 g/dl (32.0-36.5); MEAN CORPUSCULAR VOLUME 96.9 fl (80.0-96.0); PLATELET COUNT, AUTOMATED 173 10^3/uL (150-450); RED BLOOD COUNT 4.59 10^6/uL (4.30-6.10); WHITE BLOOD COUNT 7.5 10^3/uL (4.0-10.0)
[2022-10-22 21:36] LABS: HEMOGLOBIN A1c 5.5 % (4.0-6.0)
[2022-10-22 22:58] LABS: FREE T4 1.02 NG/DL (0.89-1.76); THYROID STIMULATING HORMONE 2.804 uIU/ML (0.55-4.78)
[2022-10-23 00:08] LABS: ALBUMIN 3.9 G/DL (3.2-5.2); ALKALINE PHOSPHATASE 78 U/L (46-116); ALT/SGPT 22 U/L (7.0-40); AST/SGOT 22 U/L (<34); BLOOD UREA NITROGEN 17 MG/DL (9-23); CALCIUM LEVEL 9.5 MG/DL (8.3-10.6); CARBON DIOXIDE LEVEL 25 MMOL/L (20-31); CHLORIDE LEVEL 105 MMOL/L (98-107); CHOLESTEROL LEVEL 138 MG/DL (<200); CHOLESTEROL RISK RATIO 3.16 (<5); CREATININE FOR GFR 1.16 MG/DL (0.70-1.30); GLOMERULAR FILTRATION RATE > 60.0 (>42); GLUCOSE, FASTING 80 MG/DL (74-106); HDL CHOLESTEROL 43.6 MG/DL (>40); NON-HDL-C 94 MG/DL; SODIUM LEVEL 140 MMOL/L (136-145); TOTAL PROTEIN 6.7 G/DL (5.7-8.2); TRIGLYCERIDES LEVEL 117 MG/DL (<150)
== END ==
LOC: M SFHCCLAY 09:30
PROVIDERS: ATTEND Family Medicine
DX: R53.82 Chronic fatigue, unspecified (principal); M17.11 Unilateral primary osteoarthritis, right knee; I10 Essential (primary) hypertension; R73.01 Impaired fasting glucose

== ENCOUNTER → 2022-12-22 | Outpatient (REF) | payer MEDICARE ==
[2022-12-22 19:51] LABS: BASO # 0.1 10^3/uL (0.0-0.2); BASO % 0.7 % (0.0-1.0); EOS # 0.1 10^3/uL (0.0-0.5); EOS % 1.8 % (0.0-3.0); HEMATOCRIT 44.3 % (42.0-52.0); HEMOGLOBIN 15.1 g/dl (13.5-17.5); LYMPH # 2.5 10^3/uL (1.5-5.0); LYMPH % 37.3 % (24.0-44.0); MEAN CORPUSCULAR HGB CONC 34.1 g/dl (32.0-36.5); MEAN CORPUSCULAR VOLUME 96.7 fl (80.0-96.0); MONO % 15.2 % (2.0-8.0); NEUTROPHILS % 44.3 % (36.0-66.0); PLATELET COUNT, AUTOMATED 185 10^3/uL (150-450); RED BLOOD COUNT 4.58 10^6/uL (4.30-6.10); WHITE BLOOD COUNT 6.8 10^3/uL (4.0-10.0)
[2022-12-22 20:09] LABS: ALBUMIN 3.9 G/DL (3.2-5.2); ALKALINE PHOSPHATASE 73 U/L (46-116); ALT/SGPT 20 U/L (7.0-40); AST/SGOT 16 U/L (<34); BILIRUBIN,TOTAL 0.6 MG/DL (0.3-1.2); BLOOD UREA NITROGEN 15 MG/DL (9-23); CALCIUM LEVEL 9.1 MG/DL (8.3-10.6); CARBON DIOXIDE LEVEL 27 MMOL/L (20-31); CHLORIDE LEVEL 106 MMOL/L (98-107); CHOLESTEROL LEVEL 141 MG/DL (<200); CHOLESTEROL RISK RATIO 3.02 (<5); CREATININE FOR GFR 1.11 MG/DL (0.70-1.30); GLOMERULAR FILTRATION RATE > 60.0 (>42); GLUCOSE, FASTING 114 MG/DL (74-106); HDL CHOLESTEROL 46.6 MG/DL (>40); NON-HDL-C 94.4 MG/DL; POTASSIUM SERUM 3.9 MMOL/L (3.5-5.1); SODIUM LEVEL 140 MMOL/L (136-145); TOTAL PROTEIN 6.4 G/DL (5.7-8.2); TRIGLYCERIDES LEVEL 62 MG/DL (<150)
[2022-12-22 20:10] LABS: FREE T4 1.11 NG/DL (0.89-1.76); THYROID STIMULATING HORMONE 2.045 uIU/ML (0.55-4.78); VITAMIN B12 LEVEL 440 PG/ML (211-911)
[2022-12-22 20:23] LABS: HEMOGLOBIN A1c 5.8 % (4.0-6.0)
== END ==
LOC: M SFHCCLAY 10:33
PROVIDERS: ATTEND Family Medicine
DX: I25.10 Atherosclerotic heart disease of native coronary artery without angina pectoris (principal); I10 Essential (primary) hypertension; G62.89 Other specified polyneuropathies; Z79.899 Other long term (current) drug therapy

== ENCOUNTER → 2023-03-10 | Outpatient (CLI) | payer MEDICARE ==
[~2023-03-10] MED LIST changes: -POTA10CA33 PO; +POTA10CA60 PO
== END ==
LOC: M RAD 14:03
PROVIDERS: ATTEND Internal Medicine Pulmonary Disease
DX: Z87.891 Personal history of nicotine dependence (principal)

== ENCOUNTER → 2024-01-19 | Outpatient (REF) | payer MEDICARE ==
[2024-01-19 12:36] LABS: HEMATOCRIT 40.7 % (42.0-52.0); MEAN CORPUSCULAR HEMOGLOBIN 33.8 pg (27.0-33.0); MEAN CORPUSCULAR HGB CONC 34.4 g/dl (32.0-36.5); MEAN CORPUSCULAR VOLUME 98.3 fl (80.0-96.0); PLATELET COUNT, AUTOMATED 150 10^3/uL (150-450); RED BLOOD COUNT 4.14 10^6/uL (4.30-6.10); WHITE BLOOD COUNT 6.4 10^3/uL (4.0-10.0)
[2024-01-19 12:40] LABS: ALBUMIN 3.4 G/DL (3.2-5.2); ALKALINE PHOSPHATASE 58 U/L (46-116); ALT/SGPT 16 U/L (7.0-40); AST/SGOT 14 U/L (<34); BLOOD UREA NITROGEN 25 MG/DL (9-23); CALCIUM LEVEL 8.8 MG/DL (8.3-10.6); CARBON DIOXIDE LEVEL 27 MMOL/L (20-31); CHLORIDE LEVEL 107 MMOL/L (98-107); CREATININE FOR GFR 1.15 MG/DL (0.70-1.30); GLOMERULAR FILTRATION RATE > 60.0 (>42); GLUCOSE, FASTING 106 MG/DL (74-106); POTASSIUM SERUM 3.9 MMOL/L (3.5-5.1); SODIUM LEVEL 140 MMOL/L (136-145); THYROID STIMULATING HORMONE 2.028 uIU/ML (0.55-4.78); TOTAL PROTEIN 5.7 G/DL (5.7-8.2)
== END ==
LOC: M SFHCCLAY 08:20
PROVIDERS: ATTEND Family Medicine
DX: I10 Essential (primary) hypertension (principal); R73.01 Impaired fasting glucose; M17.11 Unilateral primary osteoarthritis, right knee

== ENCOUNTER → 2024-02-23 | Outpatient (REF) | payer MEDICARE ==
[~2024-02-23] MED LIST changes: -POTA10CA60 PO; +POTA10CA70 PO
[2024-02-23 19:14] LABS: BLOOD UREA NITROGEN 16 MG/DL (9-23); CALCIUM LEVEL 9.5 MG/DL (8.3-10.6); CARBON DIOXIDE LEVEL 28 MMOL/L (20-31); CHLORIDE LEVEL 109 MMOL/L (98-107); CREATININE FOR GFR 1.24 MG/DL (0.70-1.30); GLOMERULAR FILTRATION RATE > 60.0 (>42); GLUCOSE, FASTING 102 MG/DL (74-106); POTASSIUM SERUM 3.7 MMOL/L (3.5-5.1); SODIUM LEVEL 144 MMOL/L (136-145)
== END ==
LOC: M SFHCCAPE 16:39
PROVIDERS: ATTEND Physician Assistant Medical
DX: R22.1 Localized swelling, mass and lump, neck (principal)

== ENCOUNTER → 2024-02-25 | Outpatient (REF) | payer MEDICARE | LOC: M LAB REF 16:09 | PROVIDERS: ATTEND Otolaryngology | DX: L02.11 Cutaneous abscess of neck (principal) ==

== ENCOUNTER 2024-03-15 23:56 | Emergency (ER) | payer MEDICARE ==
[~2024-03-15] VITALS: Ht 167.6 cm; Wt 101.7 kg
[2024-03-16] MEDS: CARBAMIDE PEROXIDE 6.5% OTIC SOLN 15ML AU STA (05:01)
[2024-03-16 07:06] VITALS: BP 178/103; TEMP 97.2; O2SAT 96
== END 2024-03-16 07:10 | disposition home or self-care (01) ==
LOC: M ED 23:56
DX: T16.2XXA Foreign body in left ear, initial encounter (principal); I10 Essential (primary) hypertension; Z79.1 Long term (current) use of non-steroidal anti-inflammatories (NSAID); Z79.810 Long term (current) use of selective estrogen receptor modulators (SERMs); Z79.899 Other long term (current) drug therapy

== ENCOUNTER → 2024-04-06 | Outpatient (CLI) | payer MEDICARE | LOC: M CLY 09:16 | PROVIDERS: ATTEND Family Medicine | DX: Z01.818 Encounter for other preprocedural examination (principal); R22.1 Localized swelling, mass and lump, neck ==

== ENCOUNTER → 2024-04-12 | Outpatient (CLI) | payer MEDICARE | LOC: M RAD 09:22 | PROVIDERS: ATTEND Internal Medicine Pulmonary Disease | DX: Z87.891 Personal history of nicotine dependence (principal) ==

== ENCOUNTER → 2024-05-18 | Outpatient (REF) | payer MEDICARE ==
[2024-05-18 12:12] LABS: BASO # 0.1 10^3/uL (0.0-0.2); BASO % 0.7 % (0.0-1.0); EOS # 0.2 10^3/uL (0.0-0.5); EOS % 2.1 % (0.0-3.0); HEMATOCRIT 42.3 % (42.0-52.0); HEMOGLOBIN 14.7 g/dl (13.5-17.5); LYMPH # 2.4 10^3/uL (1.5-5.0); LYMPH % 32.3 % (24.0-44.0); MEAN CORPUSCULAR HEMOGLOBIN 33.5 pg (27.0-33.0); MEAN CORPUSCULAR HGB CONC 34.8 g/dl (32.0-36.5); MEAN CORPUSCULAR VOLUME 96.4 fl (80.0-96.0); MONO # 1.2 10^3/uL (0.0-0.8); MONO % 16.1 % (2.0-8.0); NEUTROPHILS # 3.6 10^3/uL (1.5-8.5); NEUTROPHILS % 47.9 % (36.0-66.0); PLATELET COUNT, AUTOMATED 177 10^3/uL (150-450); RED BLOOD COUNT 4.39 10^6/uL (4.30-6.10); WHITE BLOOD COUNT 7.5 10^3/uL (4.0-10.0)
[2024-05-18 12:42] LABS: PSA SCREENING 1.48 NG/ML (< 4.00)
[2024-05-18 12:46] LABS: ALBUMIN 3.7 G/DL (3.2-5.2); ALKALINE PHOSPHATASE 73 U/L (46-116); ALT/SGPT 22 U/L (7.0-40); AST/SGOT 11 U/L (<34); BILIRUBIN,TOTAL 0.5 MG/DL (0.3-1.2); BLOOD UREA NITROGEN 19 MG/DL (9-23); CALCIUM LEVEL 9.1 MG/DL (8.3-10.6); CARBON DIOXIDE LEVEL 27 MMOL/L (20-31); CHLORIDE LEVEL 108 MMOL/L (98-107); CREATININE FOR GFR 1.17 MG/DL (0.70-1.30); GLOMERULAR FILTRATION RATE > 60.0 (>42); GLUCOSE, FASTING 93 MG/DL (74-106); POTASSIUM SERUM 3.7 MMOL/L (3.5-5.1); SODIUM LEVEL 140 MMOL/L (136-145); TOTAL PROTEIN 6.4 G/DL (5.7-8.2); VITAMIN B12 LEVEL 591 PG/ML (211-911)
== END ==
LOC: M SFHCCLAY 08:20
PROVIDERS: ATTEND Family Medicine
DX: I10 Essential (primary) hypertension (principal); R73.01 Impaired fasting glucose; G62.89 Other specified polyneuropathies; D64.9 Anemia, unspecified; M17.11 Unilateral primary osteoarthritis, right knee; Z12.5 Encounter for screening for malignant neoplasm of prostate
CPT/HCPCS: 80053; 82607; 85025; G0103

== ENCOUNTER 2024-06-06 06:07 | Day surgery (SDC) | payer MEDICARE ==
[~2024-06-06] VITALS: Ht 170.2 cm; Wt 100.7 kg
[~2024-06-06 06:07] MED LIST changes: +LISI5TAB11 PO
[2024-06-06] MEDS ORDERED: LR 1,000 ML IV SCH ×2 (06:35→08:35)
[2024-06-06] MEDS ORDERED: ONDANSETRON 4MG 2ML VIAL As Ordered ONE (07:03)
[2024-06-06] MEDS ORDERED: LIDOCAINE 2% 100MG/5ML SDV (FOR ANES.) As Ordered ONE (07:03)
[2024-06-06] MEDS ORDERED: propofoL 200 MG/20 ML VIAL As Ordered ONE (07:03)
[2024-06-06] MEDS ORDERED: fentaNYL 100 MCG/2 ML INJECTION As Ordered ONE (07:04)
[2024-06-06] MEDS ORDERED: LABETALOL 100MG/20ML VIAL As Ordered ONE (07:52)
[2024-06-06] MEDS ORDERED: hydrALAZINE 20MG/ML 1ML VIAL As Ordered ONE (07:58)
[2024-06-06] MEDS: LIDOCAINE W/EPINEPHRINE 1% 20ML VIAL As Ordered ONE (08:00)
[2024-06-06] MEDS ORDERED: ACETAMINOPHEN 1000MG 100ML IV BAG As Ordered ONE (08:11)
[2024-06-06] MEDS ORDERED: ePHEDrine SULFATE 25 MG/5 ML(5MG/ML) SYRINGE As Ordered ONE (08:14)
[2024-06-06] MEDS: BACITRACIN OINTMENT 30GM TUBE As Ordered ONE (08:32)
[2024-06-06] MEDS ORDERED: METOCLOPRAMIDE INJ 10MG/2ML VIAL IV PRN (08:35)
[2024-06-06] MEDS ORDERED: diphenhydrAMINE 50MG/ML VIAL IV PRN (08:35)
[2024-06-06] MEDS ORDERED: ONDANSETRON 4MG 2ML VIAL IV PRN (08:35)
[2024-06-06] MEDS ORDERED: fentaNYL 100 MCG/2 ML INJECTION IV PRN (08:35)
[2024-06-06] MEDS ORDERED: MEPERIDINE 25 MG/ML 1ML VIAL IV PRN (08:35)
[2024-06-06] MEDS ORDERED: oxyCODONE 5MG TAB PO PRN (08:35)
[2024-06-06 09:12] VITALS: BP 153/86; TEMP 96.5; O2SAT 96
== END 2024-06-06 09:32 | disposition home or self-care (01) ==
LOC: M SDC 06:07
PROVIDERS: ATTEND Otolaryngology
DX: R22.1 Localized swelling, mass and lump, neck (principal); I10 Essential (primary) hypertension; N40.0 Benign prostatic hyperplasia without lower urinary tract symptoms; G47.30 Sleep apnea, unspecified; Z79.899 Other long term (current) drug therapy; Z85.828 Personal history of other malignant neoplasm of skin; Z90.49 Acquired absence of other specified parts of digestive tract
CPT/HCPCS: 21556; 88305; J0131; J0360; J1100; J1920; J2405

== ENCOUNTER → 2024-09-28 | Outpatient (REF) | payer MEDICARE ==
[2024-09-28 12:49] LABS: ALBUMIN 3.9 G/DL (3.2-5.2); ALKALINE PHOSPHATASE 78 U/L (40-129); ALT/SGPT 22 U/L (7.0-40); AST/SGOT 15 U/L (<34); BILIRUBIN,TOTAL 0.8 MG/DL (0.3-1.2); BLOOD UREA NITROGEN 26 MG/DL (9-23); CALCIUM LEVEL 9.8 MG/DL (8.3-10.6); CARBON DIOXIDE LEVEL 30 MMOL/L (20-31); CHLORIDE LEVEL 107 MMOL/L (98-107); CHOLESTEROL LEVEL 151 MG/DL (<200); CHOLESTEROL RISK RATIO 3.24 (<5); CREATININE FOR GFR 1.22 MG/DL (0.70-1.30); GLOMERULAR FILTRATION RATE > 60.0 (>42); GLUCOSE, FASTING 85 MG/DL (74-106); HDL CHOLESTEROL 46.5 MG/DL (>40); LDL CHOLESTEROL 82.9 MG/DL (<100); NON-HDL-C 104.5 MG/DL; POTASSIUM SERUM 3.8 MMOL/L (3.5-5.1); SODIUM LEVEL 141 MMOL/L (136-145); TOTAL PROTEIN 6.7 G/DL (5.7-8.2); TRIGLYCERIDES LEVEL 108 MG/DL (<150)
[2024-09-28 12:58] LABS: HEMOGLOBIN A1c 5.6 % (4.0-6.0)
== END ==
LOC: M SFHCCLAY 09:41
PROVIDERS: ATTEND Nurse Practitioner Family
DX: R73.03 Prediabetes (principal); I10 Essential (primary) hypertension; L72.0 Epidermal cyst; M17.11 Unilateral primary osteoarthritis, right knee; G47.33 Obstructive sleep apnea (adult) (pediatric)

== ENCOUNTER → 2025-01-23 | Outpatient (CLI) | payer MEDICARE | LOC: M CLY 13:12 | PROVIDERS: ATTEND Nurse Practitioner Family | DX: M19.022 Primary osteoarthritis, left elbow (principal) ==

== ENCOUNTER 2025-04-02 09:43 | Day surgery (SDC) | payer MEDICARE ==
[~2025-04-02] VITALS: Ht 170.2 cm; Wt 102.1 kg
[2025-04-02] MEDS ORDERED: LR 1,000 ML IV SCH (10:00)
[2025-04-02] MEDS ORDERED: dexAMETHasone 4 MG/ML 1 ML VIAL As Ordered ONE (10:40)
[2025-04-02] MEDS ORDERED: ONDANSETRON 4MG 2ML VIAL As Ordered ONE (10:40)
[2025-04-02] MEDS ORDERED: LIDOCAINE 2% 100 MG/5 ML SDV (FOR ANES.) As Ordered ONE (10:40)
[2025-04-02] MEDS: ceFAZolin SOD 2 GM IV ONCE IV ONE (11:25)
[2025-04-02] MEDS: LIDOCAINE W/EPINEPHrine 1% 20 ML VIAL As Ordered ONE (11:35)
[2025-04-02] MEDS ORDERED: ACETAMINOPHEN 1000MG/100ML IV BAG As Ordered ONE (11:41)
[2025-04-02] MEDS ORDERED: hydrALAZINE 20 MG/ML 1 ML VIAL As Ordered ONE (12:00)
[2025-04-02] MEDS ORDERED: KETOROLAC 30 MG/ML 1 ML VIAL As Ordered ONE (12:39)
[2025-04-02] MEDS ORDERED: ONDANSETRON 4MG 2ML VIAL IV PRN (12:55)
[2025-04-02 14:33] VITALS: BP 163/73; TEMP 97.5; O2SAT 98
== END 2025-04-02 14:59 | disposition home or self-care (01) ==
LOC: M SDC 09:43
PROVIDERS: ATTEND Orthopaedic Surgery Hand Surgery
DX: G56.22 Lesion of ulnar nerve, left upper limb (principal); G56.02 Carpal tunnel syndrome, left upper limb; I10 Essential (primary) hypertension; L73.2 Hidradenitis suppurativa; G47.30 Sleep apnea, unspecified; Z79.899 Other long term (current) drug therapy; Z90.49 Acquired absence of other specified parts of digestive tract
CPT/HCPCS: 64718; 64721; J0131; J0360; J0665; J0690; J1100; J1885; J2405; J3010

== ENCOUNTER → 2025-05-15 | Outpatient (CLI) | payer MEDICARE | LOC: M RAD 09:29 | PROVIDERS: ATTEND Internal Medicine Pulmonary Disease | DX: Z12.2 Encounter for screening for malignant neoplasm of respiratory organs (principal); Z87.891 Personal history of nicotine dependence; J84.10 Pulmonary fibrosis, unspecified; R91.8 Other nonspecific abnormal finding of lung field; I25.10 Atherosclerotic heart disease of native coronary artery without angina pectoris; I70.0 Atherosclerosis of aorta; Z90.49 Acquired absence of other specified parts of digestive tract ==

== ENCOUNTER → 2025-07-04 | Outpatient (REF) | payer MEDICARE | LOC: M SFHCDERM 17:40 | PROVIDERS: ATTEND Physician Assistant | DX: L57.0 Actinic keratosis (principal) ==

== ENCOUNTER → 2025-07-06 | Outpatient (REF) | payer MEDICARE | LOC: M SFHCCLAY 11:10 | PROVIDERS: ATTEND Nurse Practitioner Family | DX: Z53.9 Procedure and treatment not carried out, unspecified reason (principal) ==